=== PATIENT | female | born 1970 | race Caucasian/White ===

== ENCOUNTER → 2017-10-12 09:55 | Outpatient (CLI) | payer BC, SELFPAY ==
[2017-10-12 10:37] LABS: Alanine Aminotransferase 20 U/L (12-78); Albumin Level 3.5 gm/dL (3.4-5.0); Albumin/Globulin Ratio 1.1 (1.1-1.8); Alkaline Phosphatase 59 U/L (46-116); Anion Gap 10.1 mEq/L (5-15); Aspartate Amino Transferase 14 U/L (15-37); Bilirubin,Total 0.4 mg/dL (0.2-1.0); Blood Urea Nitrogen 14 mg/dL (7-18); Carbon Dioxide 27 mmol/L (21.0-32.0); Chloride 105 mmol/L (98-107); Chol/HDL Ratio 3.1 (1-3.5); Cholesterol 181 mg/dL (140-200); Creatinine,Serum 0.75 mg/dL (0.55-1.02); Estimated Glomerular Filt Rate 83 ml/min (>60); GFR (African American) 101 ML/MIN (>60); Globulin 3.3 gm/dl (1.3-3.2); Glucose 95 mg/dL (74-106); HDL Cholesterol 59 mg/dL (29-89); LDL Cholesterol 110 mg/dL (0-130); Potassium 4.1 mmoL/L (3.5-5.1); Sodium 138 mmol/L (136-145); Thyroid Stimulating Hormone 1.28 uIU/ml (0.358-3.740); Total Protein,Serum 6.8 gm/dL (6.4-8.2); Triglycerides 59 mg/dL (30-200); VLDL Cholesterol 12 mg/dL (0-40)
[2017-10-15 15:37] LABS: Vitamin B12 867 pg/mL (232-1245)
== END ==
PROVIDERS: PCP Internal Medicine Adolescent Medicine; Visit Provider Internal Medicine Adolescent Medicine
DX: Z00.00 Encounter for general adult medical examination without abnormal findings (principal); E03.9 Hypothyroidism, unspecified; E53.8 Deficiency of other specified B group vitamins
CPT/HCPCS: 36415; 80053; 80061; 82607; 84443

== ENCOUNTER → 2018-09-15 10:14 | Outpatient (CLI) | payer BC, SELFPAY ==
[2018-09-15 11:34] LABS: Basophils # 0.1 K/mm3 (0-0.2); Basophils % 0.7 % (0.1-2.0); Eosinophils # 0.1 K/mm3 (0.0-0.4); Eosinophils % 1.9 % (0.1-12.0); Hematocrit 40.2 % (37.0-47.0); Hemoglobin 12.7 g/dL (12.2-16.2); Lymphocytes # 1.4 K/mm3 (0.7-4.5); Lymphocytes % 20.9 % (10-50); Mean Corpuscular HGB Conc 31.5 g/dL (31.8-35.4); Mean Corpuscular Hemoglobin 28.9 pg (27.0-31.2); Mean Corpuscular Volume 91.6 fl (81-99); Mean Platelet Volume 8.6 fl (7.4-10.4); Monocytes # 0.5 K/mm3 (0.1-1.0); Monocytes % 7.8 % (1.7-9.3); Neutrophils # 4.8 K/mm3 (1.8-7.8); Neutrophils % 68.8 % (37.0-80.0); Platelet Count 279 K/mm3 (142-424); Red Blood Count 4.39 M/mm3 (4.20-5.40); Red Cell Distribution Width 13.8 % (11.5-17.5); White Blood Count 6.9 K/mm3 (4.8-10.8)
[2018-09-15 11:37] LABS: Alanine Aminotransferase 16 U/L (12-78); Albumin Level 3.3 gm/dL (3.4-5.0); Albumin/Globulin Ratio 1.2 (1.1-1.8); Alkaline Phosphatase 60 U/L (46-116); Anion Gap 9.1 mEq/L (5-15); Aspartate Amino Transferase 6 U/L (15-37); Bilirubin,Total 0.3 mg/dL (0.2-1.0); Blood Urea Nitrogen 11 mg/dL (7-18); Calcium 8.9 mg/dL (8.5-10.1); Carbon Dioxide 30 mmol/L (21.0-32.0); Chloride 106 mmol/L (98-107); Chol/HDL Ratio 3.2 (1-3.5); Cholesterol 175 mg/dL (140-200); Creatinine,Serum 0.75 mg/dL (0.55-1.02); Estimated Glomerular Filt Rate 83 ml/min (>60); GFR (African American) 100 ML/MIN (>60); Globulin 2.7 gm/dl (1.3-3.2); Glucose 86 mg/dL (74-106); HDL Cholesterol 55 mg/dL (29-89); LDL Cholesterol 106 mg/dL (0-130); Potassium 4.1 mmoL/L (3.5-5.1); Sodium 141 mmol/L (136-145); Thyroid Stimulating Hormone 0.49 uIU/ml (0.358-3.740); Triglycerides 69 mg/dL (30-200); VLDL Cholesterol 14 mg/dL (0-40)
[2018-09-16 09:26] LABS: Vitamin B12 1419 pg/mL (232-1245)
== END ==
PROVIDERS: Visit Provider Nurse Practitioner Family
DX: Z00.00 Encounter for general adult medical examination without abnormal findings (principal); E03.9 Hypothyroidism, unspecified; Z86.39 Personal history of other endocrine, nutritional and metabolic disease
CPT/HCPCS: 36415; 80053; 80061; 82607; 84443; 85025

== ENCOUNTER → 2018-09-19 10:56 | Outpatient (CLI) | payer BC, SELFPAY ==
--- NOTE | 2018-09-19 11:05 | MM_ITS ---
MM Dig screening mamm BI w/CAD CAD Screening COMPARISON: Digital mammograms with CAD 10/22/2014 and additional views right breast 11/04/2014 INDICATION: There is no personal or family history of breast cancer TECHNIQUE: Standard CC and MLO images were obtained. R2 CAD reviewed. FINDINGS: Moderate diffuse fibroglandular densities are seen in both breast. There is a questionable developing asymmetric density outer quadrant left breast best seen on CC projection where it is highlighted by CAD. This likely is a summation shadow however recommend patient return for spot compression views in MLO and CC projection of the area marked on the film. Ultrasound may be necessary as well. There is a benign-appearing calcification left breast. IMPRESSION: Moderate diffuse breast density with possible developing asymmetric density left breast BI-RADS Category: 0 Need Additional Imaging Evaluation RECOMMENDED FOLLOW-UP: IMM - IMMEDIATE FOLLOW-UP RECOMMENDED (A letter has been sent to the patient regarding results of the study.)
== END ==
PROVIDERS: PCP Internal Medicine Adolescent Medicine; Visit Provider Internal Medicine Adolescent Medicine
DX: Z12.31 Encounter for screening mammogram for malignant neoplasm of breast (principal)
CPT/HCPCS: 77067

== ENCOUNTER → 2018-10-03 12:50 | Outpatient (CLI) | payer BC, SELFPAY ==
--- NOTE | 2018-10-03 13:01 | MM_ITS ---
MM Dig mamm DX unilat LT CAD, US breast LT complete INDICATION: Possible developing density in the left breast as seen on screening mammogram ORDERING PHYSICIAN: Fabiana Grimm PATIENT AGE: 309/19/2017, [birth year][age] years COMPARISON: None TECHNIQUE: Problem-solving views performed of the left breast along with left breast ultrasound FINDINGS: Average fibroglandular tissue. There is slight asymmetric density noted in the lateral aspect of the left breast. This is nonspecific. No malignant appearing mass or malignant appearing microcalcification is evident. Left breast ultrasound: At 11:00 there is a 6 x 4 mm cyst. At 12:00 there is a 5 mm cyst and a 6 mm cyst. IMPRESSION: No convincing evidence of malignancy. Asymmetric density lateral left breast may be due to either overlying cysts or asymmetric tissue. BI-RADS Category: 3 Probably Benign Finding Short Term Follow-up RECOMMENDED FOLLOW-UP: 6M - 6 MONTH FOLLOW-UP (A letter has been sent to the patient regarding results of the study.)
== END ==
PROVIDERS: PCP Internal Medicine Adolescent Medicine; Visit Provider Nurse Practitioner Family
DX: R92.8 Other abnormal and inconclusive findings on diagnostic imaging of breast (principal)
CPT/HCPCS: 76641; 77065

== ENCOUNTER → 2019-09-24 12:42 | Outpatient (CLI) | payer BC, SELFPAY ==
[2019-09-24 12:59] LABS: Basophils # 0.1 K/mm3 (0-0.2); Basophils % 0.9 % (0.1-2.0); Eosinophils # 0.2 K/mm3 (0.0-0.4); Hematocrit 39.5 % (37.0-47.0); Hemoglobin 13.5 g/dL (12.2-16.2); Lymphocytes # 1.6 K/mm3 (0.7-4.5); Lymphocytes % 26.1 % (10-50); Mean Corpuscular HGB Conc 34.1 g/dL (31.8-35.4); Mean Corpuscular Volume 85.2 fl (81-99); Mean Platelet Volume 8.9 fl (7.4-10.4); Monocytes # 0.4 K/mm3 (0.1-1.0); Neutrophils # 3.8 K/mm3 (1.8-7.8); Neutrophils % 63.2 % (37.0-80.0); Platelet Count 283 K/mm3 (142-424); Red Blood Count 4.64 M/mm3 (4.20-5.40); Red Cell Distribution Width 13.2 % (11.5-17.5); White Blood Count 5.9 K/mm3 (4.8-10.8)
[2019-09-24 16:12] LABS: Alanine Aminotransferase 12 U/L (12-78); Albumin/Globulin Ratio 1.7 (1.1-1.8); Alkaline Phosphatase 49 U/L (38-126); Anion Gap 10.1 mEq/L (5-15); Aspartate Amino Transferase 22 U/L (14-36); Bilirubin,Total 0.3 mg/dl (0.2-1.3); Blood Urea Nitrogen 13 mg/dl (7-17); Calcium 9.6 mg/dl (8.4-10.2); Carbon Dioxide 31 mmol/L (22.0-30.0); Chloride 104 mmol/L (98-107); Chol/HDL Ratio 3.9 (1-3.5); Cholesterol 182 mg/dl (140-200); Estimated Glomerular Filt Rate 77 ml/min (>60); GFR (African American) 93 ML/MIN (>60); Globulin 2.4 g/dL (1.3-3.2); Glucose 98 mg/dl (74-100); HDL Cholesterol 47 mg/dl (40-60); Potassium 4.1 mmoL/L (3.5-5.1); Sodium 141 mmol/L (136-145); Total Protein,Serum 6.4 g/dl (6.3-8.2); Triglycerides 92 mg/dl (30-150); VLDL Cholesterol 18 mg/dL (0-40)
[2019-09-24 16:23] LABS: Direct LDL Cholesterol 108.62 mg/dL (100-129)
[2019-09-24 16:44] LABS: Thyroid Stimulating Hormone 0.07 uIU/mL (0.465-4.68)
[2019-09-25 15:44] LABS: Vitamin B12 1868 pg/mL (232-1245)
== END ==
PROVIDERS: Visit Provider Nurse Practitioner Family
DX: Z00.00 Encounter for general adult medical examination without abnormal findings (principal); E03.9 Hypothyroidism, unspecified; Z86.39 Personal history of other endocrine, nutritional and metabolic disease
CPT/HCPCS: 36415; 80053; 80061; 82607; 84443; 85025

== ENCOUNTER → 2019-10-01 10:53 | Outpatient (CLI) | payer BC, SELFPAY ==
--- NOTE | 2019-10-01 11:01 | MM_ITS ---
PROCEDURE: MM DIG SCREENING MAMM BI W/CAD Digital Breast Tomosynthesis Included CLINICAL INDICATION: SCREENING There is no personal or family history of breast cancer. COMPARISON: [id number] DIG MAMM-DX UNI ADD VIEWS-RT from 11/04/2014 SCBI MM Dig screening mamm BI w/CAD from 09/19/2018 DXLT MM Dig mamm DX unilat LT CAD from 10/03/2018 TECHNIQUE: Standard CC and MLO images and 3D Tomosynthesis was obtained. R2 CAD reviewed. FINDINGS: Moderate diffuse fibroglandular densities are seen throughout both breast and the findings of bilateral and symmetrical. There is a benign-appearing calcification just deep to the nipple left breast. Casey images were reviewed. There is no new or suspicious lesion in either breast and no suspicious microcalcifications. IMPRESSION: Moderate breast density with no suspicious lesions seen BI-RAD Category: 2 Benign Finding(s) FOLLOW-UP: 1YR 1 Year Follow-up (A letter has been sent to the patient regarding results of the study.) Dictated by: Dr. Deandre Lieberman MD 10/02/2019 13:[address] Deandre Lieberman MD in [place] 10/02/2019 13:04
== END ==
PROVIDERS: PCP Internal Medicine Adolescent Medicine; Visit Provider Nurse Practitioner Family
DX: Z12.31 Encounter for screening mammogram for malignant neoplasm of breast (principal)
CPT/HCPCS: 77063; 77067

== ENCOUNTER → 2020-09-19 16:42 | Outpatient (CLI) | payer BC, SELFPAY | PROVIDERS: Visit Provider Nurse Practitioner Family | DX: R30.0 Dysuria (principal) | CPT/HCPCS: 87086; 87088; 87186 ==

== ENCOUNTER → 2020-09-30 09:24 | Outpatient (CLI) | payer BC, SELFPAY ==
[2020-09-30 10:26] LABS: Basophils # 0.1 K/mm3 (0-0.2); Basophils % 1.4 % (0.1-2.0); Eosinophils # 0.1 K/mm3 (0.0-0.4); Eosinophils % 1.8 % (0.1-12.0); Hematocrit 42.4 % (37.0-47.0); Hemoglobin 13.4 g/dL (12.2-16.2); Lymphocytes # 1.5 K/mm3 (0.7-4.5); Lymphocytes % 25.8 % (10-50); Mean Corpuscular HGB Conc 31.5 g/dL (31.8-35.4); Mean Corpuscular Hemoglobin 28.3 pg (27.0-31.2); Mean Corpuscular Volume 89.8 fl (81-99); Mean Platelet Volume 8.5 fl (7.4-10.4); Monocytes # 0.4 K/mm3 (0.1-1.0); Monocytes % 7.5 % (1.7-9.3); Neutrophils # 3.7 K/mm3 (1.8-7.8); Neutrophils % 63.4 % (37.0-80.0); Platelet Count 301 K/mm3 (142-424); Red Blood Count 4.72 M/mm3 (4.20-5.40); Red Cell Distribution Width 13.6 % (11.5-17.5); White Blood Count 5.8 K/mm3 (4.8-10.8)
[2020-09-30 11:02] LABS: Anion Gap 10.7 mEq/L (5-15); Blood Urea Nitrogen 18 mg/dl (7-17); Carbon Dioxide 28 mmol/L (22.0-30.0); Chloride 106 mmol/L (98-107); Estimated Glomerular Filt Rate 76 ml/min (>60); Potassium 4.7 mmoL/L (3.5-5.1); Sodium 140 mmol/L (136-145)
[2020-09-30 11:03] LABS: Alanine Aminotransferase 16 U/L (12-78); Albumin Level 4.2 g/dl (3.5-5.0); Albumin/Globulin Ratio 1.8 (1.1-1.8); Alkaline Phosphatase 69 U/L (38-126); Aspartate Amino Transferase 24 U/L (14-36); Bilirubin,Total 0.3 mg/dl (0.2-1.3); Calcium 9.5 mg/dl (8.4-10.2); Chol/HDL Ratio 3.1 (1-3.5); Cholesterol 210 mg/dl (140-200); GFR (African American) 92 ML/MIN (>60); Globulin 2.4 g/dL (1.3-3.2); Glucose 93 mg/dl (74-100); HDL Cholesterol 67 mg/dl (40-60); Total Protein,Serum 6.6 g/dl (6.3-8.2); Triglycerides 57 mg/dl (30-150); VLDL Cholesterol 11 mg/dL (0-40)
[2020-09-30 11:15] LABS: Direct LDL Cholesterol 111.78 mg/dL (100-129)
[2020-09-30 11:33] LABS: Thyroid Stimulating Hormone 0.22 uIU/mL (0.465-4.68)
[2020-09-30 11:54] LABS: Vitamin B12 > 1000 pg/mL (239-931)
[2020-10-01 13:43] LABS: LH 66.6 mIU/mL (.)
[2020-10-05 12:36] LABS: Estrogen 54 pg/mL (.)
== END ==
PROVIDERS: Visit Provider Internal Medicine Adolescent Medicine
DX: Z01.419 Encounter for gynecological examination (general) (routine) without abnormal findings (principal); E03.9 Hypothyroidism, unspecified; Z86.39 Personal history of other endocrine, nutritional and metabolic disease
CPT/HCPCS: 36415; 80053; 80061; 82607; 82672; 83001; 83002; 84443; 85025

== ENCOUNTER 2021-07-22 18:19 | Emergency (ER) | payer BC, SELFPAY ==
[2021-07-22 19:40] VITALS: BP 143/91; PULSE 76; RESP 18; TEMP 36.8; O2SAT 99; BMI 27.6
--- NOTE | 2021-07-22 20:14 | HMH.EDUTC ---
[facility] [place] Clinical Impression: URI (upper respiratory infection) Qualifiers: URI type: unspecified URI Qualified Code(s): J06.9 - Acute upper respiratory infection, unspecified Disposition: Home, Self-Care Condition on Discharge: Good Instructions: DI for Cough -- Adult, DI for Nasal Congestion Additional Instructions: *Monitor Temp, Over the counter Motrin or Tylenol as directed/as needed Tylenol every 4 hours and Motrin every 6 hours (as long as your family doctor has told you that you can take it) for fever or pain. and straight to ER if unable to lower temp less than 101.0 after medication given *Warm salt water gargles may help to soothe the throat *Throat Lozenges *Warm fluids like tea with honey may help to soothe the throat *Sleep elevated *Humidifier/Vaporizer Over the counter Sudafed may help with sinus congestion if you can take it you can get it from the local pharmacy you have to ask for it and sign Follow up IMMEDIATELY for new or worsening symptoms or no Noticeable improvement over the next 48-72 hours. 911 for difficulty breathing or swallowing Referrals: Emmett Ventura MD [Primary Care Provider] - As needed Time of Disposition: 20:24 Medical Decision Making - Girish Inquiry Pt receiving controlled substance: No Girish was queried for this patient: No Vital Signs: 07/22/21 19:40 07/22/21 20:45 Temperature 98.2 F 98.2 F Temperature Source Oral Pulse Rate 76 Pulse Rate [Right Brachial] 76 Respiratory Rate 18 18 Blood Pressure 143/91 H Blood Pressure [Right Arm] 143/91 H Blood Pressure Mean [Right Arm] 108 Blood Pressure Source [Right Arm] Automatic Cuff Blood Pressure Position [Right Arm] Sitting 02 Sat by Pulse Oximetry 99 Oxygen Delivery Method Room Air Orders (Tests/Meds): ED MEDICATIONS Discontinued Medications Generic Name Dose Route Start Last Admin Trade Name Freq PRN Reason Stop Dose Admin Ceftriaxone Sodium 1 gm 07/22/21 20:21 07/22/21 20:42 Ceftriaxone 1gm Vial IM 07/22/21 20:22 1 gm ONCE ONE Administration Lidocaine HCl 0 ml 07/22/21 20:21 07/22/21 20:42 Lidocaine 1% 5ml Pf Vial IM 07/22/21 20:22 2 ml ONCE ONE Administration Methylprednisolone Sodium Succinate 125 mg 07/22/21 20:21 07/22/21 20:43 Methylprednisolone Sod Succ 125mg Vial IM 07/22/21 20:22 125 mg ONCE ONE Administration [facility] [place] [facility] [place] - General Stated complaint: possible sinus infection Time Seen by Provider: 07/22/21 20:14 Mode of Arrival: Ambulatory Source of Information: Patient Limitations: No Limitations Description of Symptoms (Recalled from Triage Doc. by RN): PATIENT C/O RUNNY NOSE, SINUS PAIN AND PRESSURE, AND BILATERAL EAR ACHE SINCE SATURDAY HEENT Symptoms (Recalled from RN notes): Yes Resp Symptoms (Recalled from RN notes): No Skin Symptoms (Recalled from RN notes): No MS Symptoms (Recalled from RN notes): No Functional Status (Recalled from RN notes): WNL - History of Present Illness Provider Complaint: Patient state that she has been having sinus congestion, runny nose and bilateral ear pain/pressure States that she gets a URI about this time every year and sometimes gets a shot for it to help clear it up before it gets too bad - Related Data Home Medications Medication Instructions Recorded Confirmed Levothyroxine Sodium [Synthroid 112 mcg PO DAILY 07/22/21 07/22/21 112mcg (0.112mg) tablet] Allergies Allergy/AdvReac Type Severity Reaction Status Date / Time No Known Allergies Allergy Unverified 01/21/19 15:18 - Worker's Comp Is this a Worker's Comp case?: No [facility] History - Hepatitis A Screen Drug use history?: No High risk sexual behaviors?: No History of sexually transmitted infection?: No Currently employed?: No Childcare worker?: No Do you have indoor plumbing?: Yes Do you have electricity?: Yes Attestation statement:: This patient has been screened for Hepatitis A risk factors. I have review
[2021-07-22 20:45] VITALS: BP 143/91; PULSE 76; RESP 18; TEMP 36.8; O2SAT 99
== END 2021-07-22 20:52 | disposition home or self-care (01) ==
PROVIDERS: Emergency Provider Nurse Practitioner; PCP Internal Medicine Adolescent Medicine
DX: J06.9 Acute upper respiratory infection, unspecified (principal)
CPT/HCPCS: 96372; 99202; G0463; J0696

== ENCOUNTER → 2021-10-28 10:48 | Outpatient (CLI) | payer BC, SELFPAY ==
[2021-10-28 11:31] LABS: Basophils # 0.1 K/mm3 (0-0.2); Basophils % 2.1 % (0.1-2.0); Eosinophils # 0.1 K/mm3 (0.0-0.4); Eosinophils % 1.8 % (0.1-12.0); Hematocrit 41.7 % (37.0-47.0); Hemoglobin 13.4 g/dL (12.2-16.2); Lymphocytes # 1.7 K/mm3 (0.7-4.5); Mean Corpuscular HGB Conc 32.2 g/dL (31.8-35.4); Mean Corpuscular Hemoglobin 29.2 pg (27.0-31.2); Mean Corpuscular Volume 90.6 fl (81-99); Mean Platelet Volume 8.8 fl (7.4-10.4); Monocytes # 0.5 K/mm3 (0.1-1.0); Neutrophils # 4.3 K/mm3 (1.8-7.8); Platelet Count 286 K/mm3 (142-424); Red Cell Distribution Width 13.7 % (11.5-17.5); White Blood Count 6.8 K/mm3 (4.8-10.8)
[2021-10-28 12:12] LABS: Alanine Aminotransferase 17 U/L (12-78); Albumin Level 4.1 g/dl (3.5-5.0); Albumin/Globulin Ratio 1.8 (1.1-1.8); Alkaline Phosphatase 67 U/L (38-126); Anion Gap 7.5 mEq/L (5-15); Aspartate Amino Transferase 23 U/L (14-36); Bilirubin,Total 0.4 mg/dl (0.2-1.3); Blood Urea Nitrogen 23 mg/dl (7-17); Calcium 9.2 mg/dl (8.4-10.2); Carbon Dioxide 30 mmol/L (22.0-30.0); Chloride 107 mmol/L (98-107); Cholesterol 208 mg/dl (140-200); Estimated Glomerular Filt Rate 89 ml/min (>60); GFR (African American) 107 ML/MIN (>60); Globulin 2.3 g/dL (1.3-3.2); Glucose 88 mg/dl (74-100); HDL Cholesterol 52 mg/dl (40-60); Potassium 4.5 mmoL/L (3.5-5.1); Sodium 140 mmol/L (136-145); Total Protein,Serum 6.4 g/dl (6.3-8.2); Triglycerides 65 mg/dl (30-150); VLDL Cholesterol 13 mg/dL (0-40)
[2021-10-28 12:23] LABS: Direct LDL Cholesterol 108.18 mg/dL (100-129)
[2021-10-28 12:42] LABS: Thyroid Stimulating Hormone 0.05 uIU/mL (0.465-4.68)
[2021-10-28 13:01] LABS: Vitamin B12 866 pg/mL (239-931)
[2021-10-28 15:12] LABS: Hemoglobin A1C 5.5 % (4.0-6.0)
== END ==
PROVIDERS: PCP Nurse Practitioner Family; Referring Provider Nurse Practitioner Family; Visit Provider Nurse Practitioner Family
DX: Z00.00 Encounter for general adult medical examination without abnormal findings (principal); E03.9 Hypothyroidism, unspecified; E66.9 Obesity, unspecified; Z68.32 Body mass index [BMI] 32.0-32.9, adult; Z86.39 Personal history of other endocrine, nutritional and metabolic disease
CPT/HCPCS: 36415; 80053; 80061; 82607; 83036; 84443; 85025

== ENCOUNTER → 2022-03-23 07:51 | Outpatient (CLI) | payer BC, SELFPAY ==
--- NOTE | 2022-03-23 07:56 | MM_ITS ---
PROCEDURE INFORMATION: Exam: MG Bilateral Screening 3D Mammography Exam date and time: 03/23/2022 7:52 AM Age: 52 years old Clinical indication: Screening examination TECHNIQUE: Imaging protocol: Bilateral Screening tomosynthesis and 2D mammography including computer-aided detection (CAD) when performed. COMPARISON: 1. MG MM DIG SCREENING MAMM BI W/CAD 10/01/2019 11:02 AM 2. MG DXLT MM Dig mamm DX unilat LT CAD 10/03/2018 1:18 PM FINDINGS: MAMMOGRAPHY: Breast composition: There are scattered areas of fibroglandular density. Mass: None. Architectural distortion: None. Calcifications: No suspicious calcifications. Asymmetric density: None. Skin thickening: None. Axillary adenopathy: None. IMPRESSION: No mammographic evidence of malignancy. Annual screening is recommended unless otherwise clinically indicated. ASSESSMENT: BI-RADS Category 1: Negative
== END ==
PROVIDERS: PCP Internal Medicine Adolescent Medicine; Visit Provider Internal Medicine Adolescent Medicine
DX: Z12.31 Encounter for screening mammogram for malignant neoplasm of breast (principal)
CPT/HCPCS: 77063; 77067

== ENCOUNTER 2022-08-07 08:17 | Day surgery (SDC) | payer BC, SELFPAY ==
[2022-08-07] VITALS (7 sets, daily range): BP systolic 87–128; BP diastolic 52–75; PULSE 61–78; RESP 17–18; TEMP 36.1–36.4; O2SAT 95–100; BMI 31.7
--- NOTE | 2022-08-07 08:34 | HMH.SCOPE ---
Procedure: Date: 08/07/22 Patient Date of :: 1970 Procedure Performed:: Colonoscopy Indications:: Screening Performing Provider:: Georges Ann MD Referring Provider:: Dr. Ventura Sedation:: Monitored anesthesia care Procedure:: After informed consent was obtained the patient was taken to the endoscopy suite. Sedation ensued after the patient was transferred to the left lateral decubitus position. Pulse, blood pressure, and oxygen saturation were monitored throughout the procedure. Digital rectal exam revealed no significant abnormality. The colonoscope was placed in position. The entire colon was evaluated. The colonoscope was carefully removed and the patient was transferred to recovery in stable condition. Please see findings and specimens below for detail. Findings:: Moderate bowel preparation Significant spasticity/tortuosity Specimens:: none Recommendations:: Repeat colonoscopy in 2-3 years secondary to moderate bowel preparation and spasticity/tortuosity. Complications:: No immediate Estimated blood obtained (mL): 0
--- NOTE | 2022-08-07 08:48 | P.PN_ITS ---
[facility] Disclaimer: The information contained in this section may have been updated after the patient was seen, as this information can be updated by other users. Medical History Hypothyroid Surgical History History of hysterectomy History of total vaginal hysterectomy (TVH) Family History Other Family history of cancer Family history of hypertension Social History (Updated 08/07/22 @ 08:35 by Hollie Holguin RN) Smoking Status: Never smoker alcohol intake: current substance use type: denies use current occupational status: employed Travel in the last 8 weeks: None household members: family housing: house marital status: education level: college caffeine: Yes special tammy needs: No agree to transfusion: No do you feel safe at home: Yes victim of physical abuse: No victim of emotional abuse: No victim of sexual abuse: No would you like helpful sources: No [facility] Anesthesia Checklist Patient Identification Patient Identification: Arm Band and Family Structural Data Admitted From: Home Planned Operative Procedure/s: Colonoscopy screening Consent for Planned Operative Procedure(s) Verified: Yes Verified Documents: Surgical Consent and History and Physical NPO Status Verified Time NPO: 00:00 Additional verifications Patient : No Anesthesia Reactions: No Hx Blood Transfusions: No Blood Transfusion Reaction: No Cephalosporin Allergy: No Previous Colonoscopy: No Airway Assessment C-Spine Mobility Assessed: Yes TMJ Mobility Assessed: Yes Dentition: Poor Dentition Neurological Assessment Level of Consciousness: Awake, Alert, Appropriate and Follows Commands Hx Seizures: No Numbness or tingling in extremities: No Genitourinary Assessment Voided construction representative to O.R.: Yes Anesthesia Plan Anesthesia Risk discussed: Yes ASA Class: II Anesthesia Type: MAC Preoperative Comments Pre-Operative Comments: Hypothyroid.
== END 2022-08-07 10:00 | disposition home or self-care (01) ==
PROVIDERS: PCP Internal Medicine Adolescent Medicine; Visit Provider Surgery
PROC: 0DJD8ZZ Inspection of Lower Intestinal Tract, Via Natural or Artificial Opening Endoscopic (ICD-10-PCS; CPT 45378; principal; 2022-08-07 09:30)
DX: Z12.11 Encounter for screening for malignant neoplasm of colon (principal); Z79.899 Other long term (current) drug therapy
CPT/HCPCS: 45378

== ENCOUNTER 2022-09-18 10:10 | Emergency (ER) | payer BC, SELFPAY ==
[2022-09-18 10:10] VITALS: BP 139/67; PULSE 84; RESP 20; TEMP 36.7; O2SAT 98; BMI 31.1
--- NOTE | 2022-09-18 10:46 | EXP.UTC ---
Discharge Plan Disposition Patient Disposition: Home, Self-Care Condition: Good Prescriptions Prescriptions: New prednisone [prednisone] 20 mg tablet 20 mg PO BID 5 Days Qty: 10 0RF amoxicillin-pot clavulanate 875-125 mg Tablet 1 tab PO Q12H Qty: 14 0RF No Action levothyroxine [Synthroid] 100 mcg tablet 100 mcg PO DAILY Loratadine-D 10-240 mg tablet extended release 24 hr 1 tab PO DAILY Elite-OB 50 mg iron- 1.25 mg tablet 1 tab PO DAILY Referrals Follow up/Referrals: Emmett Ventura MD [Primary Care Provider] - See instructions Activity Restrictions/Add. Instructions Additional Instructions/Restrictions: *Monitor Temp, Over the counter Motrin or Tylenol as directed/as needed Tylenol every 4 hours and Motrin every 6 hours (as long as your family doctor has told you that you can take it) for fever or pain. and straight to ER if unable to lower temp less than 101.0 after medication given *Warm salt water gargles may help to soothe the throat *Throat Lozenges? *Warm fluids like tea with honey may help to soothe the throat? *Sleep elevated *Humidifier/Vaporizer Follow up IMMEDIATELY for new or worsening symptoms or no Noticeable improvement over the next 48-72 hours. 911 for difficulty breathing or swallowing Clinical Impressions Clinical Impression: Sinusitis Stand Alone Forms Stand Alone Forms: Work/School Release Instructions Patient Instructions: DI for Sinusitis, Sinusitis Discharge ED Provider: Jazmin Dangelo [facility] General Stated complaint: Headache congestion sore throat Mode of Arrival: Ambulatory Source of Information: Patient Limitations: No Limitations Time Seen by Provider: 09/18/22 10:46 Description of Symptoms (Recalled from Triage Doc. by RN): sinus congestion, NAVARRO, sore throat. HEENT Symptoms (Recalled from RN notes): Yes Resp Symptoms (Recalled from RN notes): No Skin Symptoms (Recalled from RN notes): No MS Symptoms (Recalled from RN notes): No Functional Status (Recalled from RN notes): n/a History of Present Illness Provider Complaint: Patient states that she started about a month ago and thought it was just allergies States that for the last little bit she said it was getting worse and now having pressure under her eyes and the drainage has got more thick State that feels like what she gets every year around this time Related Data Home Medications Medication Instructions Recorded Confirmed loratadine-pseudoephedrine ER 10 1 tab PO DAILY allergies 08/03/22 09/18/22 mg-240 mg tablet,extended [id number] (Loratadine-D) multivitamin-minerals 1 tab PO DAILY Supplement 08/03/22 09/18/22 no.69-iron,carb 50 mg-folic acid 1.25 mg tablet (Elite-OB) levothyroxine 100 mcg tablet 100 mcg PO DAILY thyroid 09/03/22 09/18/22 (Synthroid) Previous Rx's Medication Instructions Recorded amoxicillin 875 mg-potassium 1 tab PO Q12H #14 tabs 09/18/22 clavulanate 125 mg tablet prednisone 20 mg tablet 20 mg PO BID 5 days #10 tabs 09/18/22 Allergies Allergy/AdvReac Type Severity Reaction Status Date / Time No Known Allergies Allergy Verified 09/18/22 10:42 Worker's Comp Is this a Worker's Comp case?: No PFSH PFS Disclaimer: The information contained in this section may have been updated after the patient was seen, as this information can be updated by other users. Medical History Hypothyroid Surgical History History of hysterectomy History of total vaginal hysterectomy (TVH) Family History Other Family history of cancer Family history of hypertension Social History Smoking Status: Never smoker alcohol intake: current substance use type: denies use current occupational status: employ
[2022-09-18 11:26] VITALS: BP 139/67; PULSE 84; RESP 20; TEMP 36.7; O2SAT 98
== END 2022-09-18 11:25 | disposition home or self-care (01) ==
PROVIDERS: Emergency Provider Nurse Practitioner; PCP Internal Medicine Adolescent Medicine
DX: J01.90 Acute sinusitis, unspecified (principal)
CPT/HCPCS: 96372; 99212; 99214; G0463

== ENCOUNTER 2024-03-08 08:56 | Outpatient (CLI) | payer BC, SELFPAY ==
[2024-03-08 09:20] LABS: Basophils # 0.1 K/mm3 (0-0.2); Basophils % 0.7 % (0.1-2.0); Eosinophils # 0.4 K/mm3 (0.0-0.4); Eosinophils % 4.3 % (0.1-12.0); Hematocrit 41.4 % (37.0-47.0); Hemoglobin 13.4 g/dL (12.2-16.2); Lymphocytes # 1.9 K/mm3 (0.7-4.5); Lymphocytes % 20.9 % (10-50); Mean Corpuscular HGB Conc 32.4 g/dL (31.8-35.4); Mean Corpuscular Hemoglobin 29.1 pg (27.0-31.2); Mean Corpuscular Volume 89.8 fl (81-99); Monocytes # 0.6 K/mm3 (0.1-1.0); Monocytes % 6.5 % (1.7-9.3); Neutrophils # 6.2 K/mm3 (1.8-7.8); Neutrophils % 67.7 % (37.0-80.0); Platelet Count 291 K/mm3 (142-424); Red Blood Count 4.61 M/mm3 (4.20-5.40); Red Cell Distribution Width 14.5 % (11.5-17.5); White Blood Count 9.1 K/mm3 (4.8-10.8)
[2024-03-08 10:01] LABS: Alanine Aminotransferase 17 U/L (12-78); Albumin Level 3.5 g/dl (3.5-5.0); Albumin/Globulin Ratio 1.4 (1.1-1.8); Alkaline Phosphatase 71 U/L (38-126); Amylase 51 U/L (30-110); Anion Gap 8.1 mEq/L (5-15); Aspartate Amino Transferase 26 U/L (14-36); Bilirubin,Total 0.3 mg/dl (0.2-1.3); Blood Urea Nitrogen 14 mg/dl (7-17); Calcium 9.2 mg/dl (8.4-10.2); Carbon Dioxide 28 mmol/L (22.0-30.0); Chloride 107 mmol/L (98-107); Estimated Glomerular Filt Rate 88 ml/min (>60); GFR (African American) 106 ML/MIN (>60); Globulin 2.5 g/dL (1.3-3.2); Glucose 103 mg/dl (74-100); Lipase 139 U/L (23-300); Magnesium 1.9 mg/dl (1.6-2.3); Potassium 4.1 mmoL/L (3.5-5.1); Sodium 139 mmol/L (136-145)
[2024-03-08 10:16] LABS: Free Thyroxine Index 3.2 ug/dL (5.93-13.13); T4 (Thyroxine) 10.7 ug/dl (5.53-11.0); Triiodothryronine (T3) Uptake 30 % (23.5-40.5)
[2024-03-08 10:30] LABS: Thyroid Stimulating Hormone 6.55 uIU/mL (0.465-4.68)
== END 2024-03-08 23:59 | disposition home or self-care (01) ==
LOC: LAB 08:57
PROVIDERS: PCP Internal Medicine Adolescent Medicine; Visit Provider Internal Medicine Adolescent Medicine
DX: R10.84 Generalized abdominal pain (principal); R11.10 Vomiting, unspecified
CPT/HCPCS: 36415; 80050; 80053; 82150; 83690; 83735; 84436; 84443; 84479; 85025

== ENCOUNTER 2024-03-12 10:47 | Outpatient (CLI) | payer BC, SELFPAY ==
--- NOTE | 2024-03-12 10:50 | US_ITS ---
FINAL REPORT CLINICAL HISTORY: Abdominal pain and recurrent vomiting FINDINGS: Sonographic images of the abdomen were obtained. The liver has an unremarkable appearance with normal echogenicity. The gallbladder has an unremarkable appearance without evidence of gallstones. There is no evidence of biliary ductal dilatation. The common hepatic duct measures 3 mm, which is within normal limits. Limited images of the pancreas are obscured. The spleen size is normal. The right kidney measures 8.6 cm in length. The left kidney measures 10 cm in length. There is normal renal echogenicity. There is no evidence of hydronephrosis. The aorta has an unremarkable appearance. Limited images of the inferior vena cava are unremarkable. IMPRESSION: Unremarkable abdominal ultrasound with no acute abnormality identified. Reviewed, Interpreted and Dictated by Oliver Kunz MD Transcribed by Chayito Silverman Authenticated and . [facility]
== END 2024-03-12 23:59 | disposition home or self-care (01) ==
LOC: RAD 10:47
PROVIDERS: PCP Internal Medicine Adolescent Medicine; Visit Provider Internal Medicine Adolescent Medicine
DX: R10.84 Generalized abdominal pain (principal); R11.10 Vomiting, unspecified
CPT/HCPCS: 76700

== ENCOUNTER 2024-03-18 07:26 | Emergency (ER) | payer BC, SELFPAY ==
[2024-03-18] VITALS (7 sets, daily range): BP systolic 119–126; BP diastolic 80–89; PULSE 81–103; RESP 18; TEMP 36.4–36.7; O2SAT 98–100; BMI 24.0
--- NOTE | 2024-03-18 07:40 | PC.NURSE ---
Dr. Sofia at BS from pt eval
--- NOTE | 2024-03-18 07:42 | CT_ITS ---
FINAL REPORT TECHNIQUE: Postcontrast axial images through the abdomen and pelvis were performed. This study was performed with techniques to keep radiation doses as low as reasonably achievable, (ALARA). Individualized dose reduction techniques using automated exposure control or adjustment of mA and/or kV according to the patient's size were employed. CLINICAL HISTORY: abdominal pain FINDINGS: Abdomen: The lung bases are clear. The liver is normal in size and attenuation. The spleen is unremarkable. The adrenals are normal. The pancreas is unremarkable. The kidneys enhance appropriately. The aorta is normal in caliber. No free fluid or adenopathy is identified. No findings for mechanical bowel obstruction are identified. Pelvis: The appendix is normal. There are multiple fluid-filled large and small bowel loops, may represent enteritis. Patient is status post hysterectomy. The urinary bladder is unremarkable. No free fluid, free air, abscess or adenopathy is identified. IMPRESSION: Findings may represent enteritis. Reviewed, Interpreted and Dictated by Shadi Hdez III, MD Transcribed by Tiffanie Souza Authenticated and [facility]
--- NOTE | 2024-03-18 07:44 | HMH.EDGENADL ---
Discharge Plan Disposition Patient Disposition: Home, Self-Care Condition: Good Prescriptions Prescriptions: New ondansetron 4 mg tablet,disintegrating 4 mg PO Q6H PRN (Reason: nausea and vomiting) 4 Days Qty: 16 0RF No Action levothyroxine [Synthroid] 100 mcg tablet 100 mcg PO DAILY phentermine [Adipex-P] 37.5 mg capsule 37.5 mg PO DAILY Qty: 30 0RF Rx Instructions: must administer 30 minutes before or 1-2 hours after breakfast estradiol 0.05 mg/24 hr patch semiweekly See Rx Instructions .ROUTE .COMPLEX Qty: 8 12RF Dose Instruction: APPLY 1 PATCH TRANSDERMALLY TWICE A WEEK Rx Instructions: APPLY 1 PATCH TRANSDERMALLY TWICE A WEEK ondansetron 4 mg tablet,disintegrating 4 mg PO QID PRN (Reason: nausea and vomiting) Qty: 10 0RF Loratadine-D 10-240 mg tablet extended release 24 hr 1 tab PO DAILY Elite-OB 50 mg iron- 1.25 mg tablet 1 tab PO DAILY Referrals Follow up/Referrals: Emmett Ventura MD [Primary Care Provider] - See instructions Activity Restrictions/Add. Instructions Additional Instructions/Restrictions: You have been evaluated in the ED for your complaints. You may follow-up with your PCP in the next 3 to 5 days. Please return to ED for any new or worsening symptoms. I have written for Zofran to assist with nausea and vomiting. Please make sure that you are drinking plenty of fluids over the next several days in the setting of your symptoms. Clinical Impressions Clinical Impression: Enteritis, Abdominal pain, Nausea vomiting and diarrhea Stand Alone Forms Stand Alone Forms: Work/School Release Instructions Patient Instructions: DI for Acute Abdominal Pain Print Language Print Language: Nepalese Discharge ED Provider: Andrey Sofia General Adult HPI General Chief complaint: Abdominal Pain Stated complaint: stomach pain pancreatitis issues Time Seen by Provider: 03/18/24 07:37 History of Present Illness HPI narrative: 54-year-old female with past medical history significant for hypothyroidism, recent diagnosis of drug-induced pancreatitis secondary to GLP 1 drug on 03/16/2024, returns to the ED today reporting same symptoms as her most recent visit. She states that she has had multiple episodes of nausea, vomiting and diarrhea this morning. She denies having any chest pain, shortness of breath, fevers or chills. She states that her abdominal pain is diffuse however more focal in the upper quadrants. She denies any other symptoms at this time. Related Data Home Medications ?Medication ?Instructions ?Recorded ?Confirmed loratadine-pseudoephedrine ER 10 1 tab PO DAILY allergies 08/03/22 11/13/22 mg-240 mg tablet,extended [id number] (Loratadine-D) multivitamin-minerals 1 tab PO DAILY Supplement 08/03/22 11/13/22 no.69-iron,carb 50 mg-folic acid 1.25 mg tablet (Elite-OB) levothyroxine 100 mcg tablet 100 mcg PO DAILY thyroid 09/03/22 11/13/22 (Synthroid) Previous Rx's ?Medication ?Instructions ?Recorded phentermine 37.5 mg capsule 37.5 mg PO DAILY #30 caps 11/13/22 (Adipex-P) estradiol 0.05 mg/24 hr semiweekly See Rx Instructions .Route 10/29/23 transdermal patch .COMPLEX #8 patches ondansetron 4 mg disintegrating 4 mg PO QID PRN nausea and 03/16/24 tablet vomiting #10 tabs ondansetron 4 mg disintegrating 4 mg PO Q6H PRN nausea and 03/18/24 tablet vomiting 4 days #16 tabs Allergies Allergy/AdvReac Type Severity Reaction Status Date / Time No Known Allergies Allergy Verified 11/13/22 13:44 [facility] Disclaimer: The information contained in this section may have been updated after the patient was seen, as this information can be updated by other users. Medical History Hypothyroid Surgical History History of hysterectomy History of total vaginal hysterectomy (TVH) Family History Other Family history of cancer Family history of hypertension Social History Smoking Status: Never smoker alcohol intake: current substance use type: denies use current occupational status: employed Travel in the last 8 weeks: None household members: family housing: house marital status: education level: college caffeine: Yes special tammy needs: No agree to transfusion: No do you feel safe at home: Yes victim of physical abuse: No victim of emotional abuse: No victim of sexual abuse: No would you like helpful sources: No ROS Obtained: Yes All systems reviewed & no additional complaints except as documented Physical Exam General General appearance: alert and in no apparent distress Head Head exam: atraumatic and normocephalic Eye Eye exam: Present normal appearance, PERRL and EOMI ENT ENT exam: Present normal oropharynx and mucous membranes moist Neck Neck exam: Present full ROM; Absent meningismus Respiratory Respiratory exam: Absent respiratory distress, wheezes, stridor or accessory muscle use Cardiovascular Cardiovascular exam: Present normal rhythm Abdominal Exam Abdominal exam: Present soft and tenderness; Absent distention, guarding, rebound or rigidity Abdominal tenderness: Present RUQ, LUQ, epigastrium and diffuse Neurological Exam Neurological exam: Present alert, oriented X3 and CN II-XII intact; Absent motor sensory deficit Psychiatric Psychiatric exam: Present normal affect and normal mood Skin Skin exam: Present warm and dry Medical Decision Making Medical Records Medical records reviewed: Yes I reviewed the patient's medical records. Girish Inquiry Pt receiving controlled substance: No Girish was queried for this patient: No Vital Signs: 03/18/24 07:28 03/18/24 07:31 03/18/24 08:00 Temperature 97.6 F Temperature Source Oral Pulse Rate 103 H 85 Pulse Rate [Left Radial] 91 H Respiratory Rate 18 Blood Pressure 126/82 124/89 Blood Pressure [Right Arm] 126/82 Blood Pressure Mean [Right Arm] 96 Blood Pressure Source [Right Arm] Automatic Cuff Blood Pressure Position [Right Arm] Sitting 02 Sat by Pulse Oximetry 100 99 98 Oxygen Delivery Method Room Air 03/18/24 08:30 03/18/24 09:30 03/18/24 10:00 Temperature Temperature Source Pulse Rate 85 85 81 Pulse Rate [Left Radial] Respiratory Rate Blood Pressure 123/80 124/82 119/81 Blood Pressure [Right Arm] Blood Pressure Mean [Right Arm] Blood Pressure Source [Right Arm] Blood Pressure Position [Right Arm] 02 Sat by Pulse Oximetry 99 99 100 Oxygen Delivery Method Room Air Lab Data Lab Results 03/18/24 07:35: WBC 10.6, RBC 5.12, Hgb 14.7, Hct 46.6, MCV 91.0, MCH 28.7, MCHC 31.5 L, RDW 14.7, Plt Count 346, MPV 9.6, Neut % (Auto) 63.3, Lymph % (Auto) 18.9, Sutter % (Auto) 9.0, Eos % (Auto) 8.3, Baso % (Auto) 0.5, Neut # (Auto) 6.7, Lymph # (Auto) 2.0, Sutter # (Auto) 1.0, Eos # (Auto) 0.9 H, Baso # (Auto) 0.1, Sodium 135 L, Potassium 4.0, Chloride 105, Carbon Dioxide 26, Anion Gap 8.0, BUN 14, Creatinine 0.80, Estimated Creat Clear 74, Estimated GFR 75, Est GFR ( Amer) 91, Glucose 101 H, Calcium 8.8, Total Bilirubin 0.6, AST 22, ALT 14, Alkaline Phosphatase 54, Total Protein 6.4, Albumin 3.5, Globulin 2.9, Albumin/Globulin Ratio 1.2, Lipase 49 03/18/24 08:10: Lactate 1.0 03/18/24 07:35 03/18/24 07:35 Orders (Tests/Meds): ED MEDICATIONS Discontinued Medications Generic Name Dose Route Start Last Admin Trade Name Freq PRN Reason Stop Dose Admin Lactated Ringer's 500 mls @ 999 mls/hr 03/18/24 07:42 03/18/24 08:03 Lactated Ringer's 1000 Ml Bag IV 03/18/24 08:12 999 mls/hr .Q31M ONE Administration Iopamidol 75 ml 03/18/24 08:31 03/18/24 08:32 Iopamidol-370 (76%);100ml Bottle IV 03/18/24 08:32 75 ml ONCE ONE Administration Morphine Sulfate 4 mg 03/18/24 07:42 03/18/24 08:03 Morphine 4mg/Ml Syringe IV 03/18/24 07:43 4 mg ONCE ONE Administration Ondansetron HCl 4 mg 03/18/24 07:42 03/18/24 08:03 Ondansetron 4mg/2ml Vial IV 03/18/24 07:43 4 mg ONCE ONE Administration Sodium Chloride 10 ml 03/18/24 08:31 03/18/24 08:32 Sodium Chloride 0.9% 10ml Syr (Rad Only) IV 03/18/24 08:32 10 ml ONCE ONE Administration ORDERS Category Date Time Status CT abdomen pelvis w con Stat Cat Scan 03/18/24 07:42 Completed CBC w/Auto Diff [Complete Blood Count Auto Diff] Stat Lab 03/18/24 07:35 Completed CMP [Comprehensive Metabolic Panel] Stat Lab 03/18/24 07:35 Completed Lactic Acid Stat Lab 03/18/24 08:10 Completed Lipase Stat Lab 03/18/24 07:35 Completed Medical Decision Narrative: 54-year-old female with past medical history significant for hypothyroidism, recent diagnosis of drug-induced pancreatitis secondary to GLP 1 drug on 03/16/2024, returns to the ED today reporting same symptoms as her most recent visit. She states that she has had multiple episodes of nausea, vomiting and diarrhea this morning. She denies having any chest pain, shortness of breath, fevers or chills. She states that her abdominal pain is diffuse however more focal in the upper quadrants. On assessment she was hemodynamically stable and in no acute distress. Afebrile. Her chest was clear to station bilaterally. Her abdomen was soft and nondistended however was generally tender, more focal in the upper quadrants specifically the epigastrium. Other physical exam findings unremarkable. Differential diagnosis include not limited to worsening pancreatitis, gastritis, gastroenteritis, cholecystitis, appendicitis, among others. Labs today have been reassuring. No significant electrolyte derangements. WBC is not elevated at 10.6. Lipase within range at 49. Lactate of 1. CT scan is not showing pancreatitis today however it is showing findings consistent with enteritis. On reassessment she remains medically stable in no distress. She has been able to tolerate oral intake without difficulty. Pain is controlled. Discussed with patient ED work-up and results and current plan to discharge. Provided with return to ED precautions and instructions concerning PCP follow-up. Patient verbalized understanding and agreement with plan. Subsequently discharged hemodynamically stable and in no acute distress. Critical Care Critical Care Time Critical Care Time: No
[2024-03-18 07:49] LABS: Basophils # 0.1 K/mm3 (0-0.2); Basophils % 0.5 % (0.1-2.0); Eosinophils # 0.9 K/mm3 (0.0-0.4); Eosinophils % 8.3 % (0.1-12.0); Hematocrit 46.6 % (37.0-47.0); Hemoglobin 14.7 g/dL (12.2-16.2); Lymphocytes % 18.9 % (10-50); Mean Corpuscular HGB Conc 31.5 g/dL (31.8-35.4); Mean Corpuscular Hemoglobin 28.7 pg (27.0-31.2); Mean Platelet Volume 9.6 fl (7.4-10.4); Neutrophils # 6.7 K/mm3 (1.8-7.8); Neutrophils % 63.3 % (37.0-80.0); Platelet Count 346 K/mm3 (142-424); Red Blood Count 5.12 M/mm3 (4.20-5.40); Red Cell Distribution Width 14.7 % (11.5-17.5); White Blood Count 10.6 K/mm3 (4.8-10.8)
[2024-03-18 08:02] LABS: Alanine Aminotransferase 14 U/L (12-78); Albumin Level 3.5 g/dl (3.5-5.0); Albumin/Globulin Ratio 1.2 (1.1-1.8); Alkaline Phosphatase 54 U/L (38-126); Aspartate Amino Transferase 22 U/L (14-36); Bilirubin,Total 0.6 mg/dl (0.2-1.3); Blood Urea Nitrogen 14 mg/dl (7-17); Calcium 8.8 mg/dl (8.4-10.2); Carbon Dioxide 26 mmol/L (22.0-30.0); Chloride 105 mmol/L (98-107); Creatinine Clearance Estimated 74 mL/min (50-200); Estimated Glomerular Filt Rate 75 ml/min (>60); GFR (African American) 91 ML/MIN (>60); Globulin 2.9 g/dL (1.3-3.2); Glucose 101 mg/dl (74-100); Lipase 49 U/L (23-300); Sodium 135 mmol/L (136-145); Total Protein,Serum 6.4 g/dl (6.3-8.2)
[2024-03-18] MEDS: MORPHINE 4MG/ML SYRINGE 4 MG IV (08:03)
[2024-03-18] MEDS: LACTATED RINGERS 1000ML 500 ML 999 ML IV (08:03)
[2024-03-18] MEDS: ONDANSETRON 4MG/2ML VIAL 4 MG IV (08:03)
--- NOTE | 2024-03-18 08:23 | PC.NURSE ---
PT TO CT
--- NOTE | 2024-03-18 08:29 | PC.NURSE ---
PT RETURNED FROM CT
[2024-03-18] MEDS: IOPAMIDOL-370 (76%);100ML BOTTLE 75 ML IV (08:32)
[2024-03-18] MEDS: SODIUM CHLORIDE 0.9% 10ML SYR (RAD ONLY) 10 ML IV (08:32)
--- NOTE | 2024-03-18 08:53 | PC.NURSE ---
Dr. Sofia at bedside
--- NOTE | 2024-03-18 08:54 | PC.NURSE ---
DR MARQUEZ AT BEDSIDE
--- NOTE | 2024-03-18 09:50 | PC.NURSE ---
ROUNDED ON PT, UPDATED ON POC. REQUESTS GATORADE. PROVIDED
--- NOTE | 2024-03-18 10:10 | PC.NURSE ---
DR MARQUEZ AT BEDSIDE TO UPDATE PT AND FAMILY
== END 2024-03-18 10:28 | disposition home or self-care (01) ==
PROVIDERS: Emergency Provider Emergency Medicine; PCP Internal Medicine Adolescent Medicine
DX: K52.9 Noninfective gastroenteritis and colitis, unspecified (principal); R11.2 Nausea with vomiting, unspecified; R10.11 Right upper quadrant pain; R10.12 Left upper quadrant pain; E03.9 Hypothyroidism, unspecified
CPT/HCPCS: 74177; 80053; 83605; 83690; 85025; 96374; 96375; 99285; J2270; J2405; J7120; Q9967

== ENCOUNTER 2024-05-31 09:38 | Outpatient (CLI) | payer BC, SELFPAY ==
[2024-05-31 10:06] LABS: Basophils # 0.1 K/mm3 (0-0.2); Eosinophils # 0.4 K/mm3 (0.0-0.4); Eosinophils % 8.2 % (0.1-12.0); Lymphocytes # 1.1 K/mm3 (0.7-4.5); Lymphocytes % 22.6 % (10-50); Mean Corpuscular HGB Conc 34.2 g/dL (31.8-35.4); Mean Corpuscular Volume 87.9 fl (81-99); Mean Platelet Volume 8.6 fl (7.4-10.4); Monocytes # 0.5 K/mm3 (0.1-1.0); Monocytes % 10.4 % (1.7-9.3); Neutrophils # 2.8 K/mm3 (1.8-7.8); Neutrophils % 57.8 % (37.0-80.0); Platelet Count 232 K/mm3 (142-424); Red Blood Count 4.32 M/mm3 (4.20-5.40); White Blood Count 4.9 K/mm3 (4.8-10.8)
[2024-05-31 10:34] LABS: Albumin Level 3.6 g/dl (3.5-5.0); Chloride 106 mmol/L (98-107)
[2024-05-31 10:35] LABS: Potassium 4.4 mmoL/L (3.5-5.1); Sodium 137 mmol/L (136-145)
[2024-05-31 10:37] LABS: Alanine Aminotransferase 18 U/L (12-78); Aspartate Amino Transferase 23 U/L (14-36); Blood Urea Nitrogen 17 mg/dl (7-17); Estimated Glomerular Filt Rate 75 ml/min (>60); GFR (African American) 91 ML/MIN (>60)
[2024-05-31 10:38] LABS: Albumin/Globulin Ratio 1.6 (1.1-1.8); Alkaline Phosphatase 64 U/L (38-126); Anion Gap 7.4 mEq/L (5-15); Bilirubin,Total 0.3 mg/dl (0.2-1.3); Carbon Dioxide 28 mmol/L (22.0-30.0); Chol/HDL Ratio 3.2 (1-3.5); Cholesterol 173 mg/dl (140-200); Globulin 2.2 g/dL (1.3-3.2); Glucose 113 mg/dl (74-100); HDL Cholesterol 54 mg/dl (40-60); Total Protein,Serum 5.8 g/dl (6.3-8.2); Triglycerides 83 mg/dl (30-150); VLDL Cholesterol 17 mg/dL (0-40)
[2024-05-31 10:49] LABS: Direct LDL Cholesterol 82.99 mg/dL (100-129)
[2024-05-31 11:06] LABS: Thyroid Stimulating Hormone 0.08 uIU/mL (0.465-4.68)
[2024-05-31 12:05] LABS: Vitamin B12 > 1000 pg/mL (239-931)
[2024-06-01 14:01] LABS: Hemoglobin A1C 5.1 % (4.0-6.0)
== END 2024-05-31 23:59 | disposition home or self-care (01) ==
LOC: LAB 09:39
PROVIDERS: Internal Medicine Adolescent Medicine; PCP Nurse Practitioner Family; Visit Provider Nurse Practitioner Family
DX: E53.8 Deficiency of other specified B group vitamins (principal); E03.9 Hypothyroidism, unspecified; Z00.00 Encounter for general adult medical examination without abnormal findings
CPT/HCPCS: 36415; 80050; 80053; 80061; 82607; 83036; 84443; 85025

== ENCOUNTER 2024-07-06 13:08 | Outpatient (CLI) | payer BC, SELFPAY ==
--- NOTE | 2024-07-06 13:12 | MM_ITS ---
PROCEDURE INFORMATION: Exam: MG Bilateral Screening 3D Mammography Exam date and time: 07/06/2024 1:12 PM Age: 54 years old Clinical indication: Screening examination TECHNIQUE: Imaging protocol: Bilateral Screening tomosynthesis and 2D mammography including computer-aided detection (CAD) when performed. COMPARISON: 1. MG MM DIG SCREENING MAMM BI W/CAD 03/23/2022 7:52 AM 2. MG MM DIG SCREENING MAMM BI W/CAD 10/01/2019 11:02 AM FINDINGS: MAMMOGRAPHY: Breast composition: The breasts are heterogeneously dense, which may obscure small masses. Mass: No suspicious masses. Architectural distortion: None. Calcifications: No suspicious calcifications. Asymmetric density: None. Skin thickening: None. Axillary adenopathy: None. IMPRESSION: No mammographic evidence of malignancy. Annual screening is recommended unless otherwise clinically indicated. ASSESSMENT: BI-RADS Category 1: Negative.
== END 2024-07-06 23:59 | disposition home or self-care (01) ==
LOC: RAD 13:08
PROVIDERS: PCP Nurse Practitioner Family; Visit Provider Nurse Practitioner Family
DX: Z12.31 Encounter for screening mammogram for malignant neoplasm of breast (principal)
CPT/HCPCS: 77063; 77067

== ENCOUNTER 2024-12-21 10:26 | Day surgery (SDC) | payer BC, SELFPAY ==
[2024-12-21 11:35] VITALS: BP 104/77; PULSE 75; RESP 16; TEMP 36.2; O2SAT 100; BMI 27.6
[2024-12-21] MEDS: LACTATED RINGERS 1000ML 1,000 ML 50 ML IV (11:41)
--- NOTE | 2024-12-21 12:22 | EXP.HP ---
History of Present Illness *Admission Date: 12/21/24 *Reason for visit:: Screening for colon cancer *History of present illness: Mrs. Hernandez is a 54-year-old female who is here for screening colonoscopy. The examination is deemed medically necessary for screening colonoscopy. The patient has been seen, interviewed and examined prior to the procedure by both myself and the anesthesia provider. [facility] Disclaimer: The information contained in this section may have been updated after the patient was seen, as this information can be updated by other users. Medical History (Updated 12/21/24 @ 12:23 by Desmond Leos II, MD) Pancreatitis Conjunctivitis Hypothyroid Surgical History History of hysterectomy History of total vaginal hysterectomy (TVH) Family History Other Family history of cancer Family history of hypertension Social History Smoking Status: Never smoker alcohol intake: current substance use type: denies use current occupational status: employed Travel in the last 8 weeks?: None household members: family housing: house marital status: education level: college caffeine: Yes special tammy needs: No agree to transfusion: No do you feel safe at home: Yes victim of physical abuse: No victim of emotional abuse: No victim of sexual abuse: No would you like helpful sources: No Have you lived/traveled outside [place] in past 30 days?: No Contact w/someone who lives/traveled outside US past 30 days?: No Exposure to someone with infectious disease in past 14 days?: No Do you have a fever (greater than 100.4 F or 38 C)?: No Have you tested positive for COVID-19?: No Exposed to someone with COVID-19 in past 14 days?: No Do you have a sore throat?: No Do you have a cough?: No Do you have any weakness?: No Do you have any diarrhea?: No Are you experiencing any unusual bleeding?: No Do you have any muscle aches/pain?: No Do you have any abdominal pain?: No Are you experiencing loss of taste or smell?: No Other Medical History Have you received the Pneumonia Vaccine: No Review of Systems Review of Systems Review of systems (narrative): Negative *Cardiovascular Comments: Negative *Gastrointestinal Comments: Negative *Genitourinary Comments: Negative *Musculoskeletal Comments: Negative *Neurologic Comments: Negative Meds Home Medications and Allergies Home Medications ?Medication ?Instructions ?Recorded ?Confirmed ?Type loratadine-pseudoephedrine ER 10 1 tab PO DAILY allergies 08/03/22 12/21/24 History mg-240 mg tablet,extended [id number] (Loratadine-D) multivitamin-minerals 1 tab PO DAILY Supplement 08/03/22 12/21/24 History no.69-iron,carb 50 mg-folic acid 1.25 mg tablet (Elite-OB) PNV w/calcium 66-iron 27 mg-folic 300 cap PO DAILY 07/06/24 12/21/24 History 1.25 mg-DSS 55 mg-dha 300 mg capsule bupropion HCl 150 mg 24 hr tablet, 150 mg PO DAILY 07/06/24 12/21/24 History extended release fluticasone propionate 50 50 mcg intranasal DAILY 07/06/24 12/21/24 History mcg/actuation nasal spray,suspension levothyroxine 112 mcg tablet 112 mcg PO DAILY 07/06/24 12/21/24 History estradiol 0.05 mg/24 hr semiweekly See Rx Instructions .Route 07/28/24 12/21/24 Rx transdermal patch .COMPLEX #24 patches New Prescriptions to Start Prescriptions: Allergies Allergy/AdvReac Type Severity Reaction Status Date / Time No Known Allergies Allergy Verified 12/01/24 15:01 Exam Data for Last 24 hours Vital signs and Labs for Last 24 Hours: Temp Pulse Resp BP Pulse Ox O2 Del Method 97.2 F L 75 16 104/77 L 100 Room Air 12/21/24 11:35 12/21/24 11:35 12/21/24 11:35 12/21/24 11:35 12/21/24 11:35 12/21/24 11:35 I & O for Last 24 hours: Intake & Output 12/18/24 12/19/24 12/20/24 12/21/24 23:59 23:59 23:59 23:59 Weight 146 lb *Routine HEENT Exam Head: Present normocephalic Eye: Present EOMI and PERRL ENT: Present mucous membranes moist *Routine Neck Exam Neck: Present supple *Routine Respiratory Exam Respiratory: Present CTA bilaterally *Routine Cardiovascular Exam Cardiovascular: Present RRR *Routine Abdominal Exam Abdominal: Present soft and normoactive bowel sounds; Absent tenderness *Routine Rectal Exam Rectal:: deferred *Routine Genitalia Exam Genitalia:: deferred *Routine Extremities Exam Extremities: Absent cyanosis, clubbing or edema *Routine Skin Exam Skin: Present warm; Absent rash *Routine Neurological Exam Neurological: Present alert and oriented X3 Assessment and Plan *Assessment and plan (1) Screening for colon cancer: Status: Acute Category: Medical Code(s): Z12.11 - Encounter for screening for malignant neoplasm of colon Plan A/P: 1. Screening for colon cancer is the preprocedural diagnosis. The patient did have an attempted colonoscopy in July 2022 (Georges Ann M.D.) and findings showed moderate bowel preparation with significant spasticity/tortuosity and recommended repeat colonoscopy in 2 to 3 years secondary to the bowel preparation and tortuosity. The patient will be anesthetized/sedated using MAC sedation. The patient has been seen and examined. Cardiac and lung assessment prior to the examination is stable. Proceed with planned screening colonoscopy.
--- NOTE | 2024-12-21 12:30 | EXP.ANES.CKL ---
[facility] Disclaimer: The information contained in this section may have been updated after the patient was seen, as this information can be updated by other users. Medical History (Updated 12/21/24 @ 12:23 by Desmond Leos II, MD) Pancreatitis Conjunctivitis Hypothyroid Surgical History History of hysterectomy History of total vaginal hysterectomy (TVH) Family History Other Family history of cancer Family history of hypertension Social History Smoking Status: Never smoker alcohol intake: current substance use type: denies use current occupational status: employed Travel in the last 8 weeks?: None household members: family housing: house marital status: education level: college caffeine: Yes special tammy needs: No agree to transfusion: No do you feel safe at home: Yes victim of physical abuse: No victim of emotional abuse: No victim of sexual abuse: No would you like helpful sources: No Have you lived/traveled outside US in past 30 days?: No Contact w/someone who lives/traveled outside [place] past 30 days?: No Exposure to someone with infectious disease in past 14 days?: No Do you have a fever (greater than 100.4 F or 38 C)?: No Have you tested positive for COVID-19?: No Exposed to someone with COVID-19 in past 14 days?: No Do you have a sore throat?: No Do you have a cough?: No Do you have any weakness?: No Do you have any diarrhea?: No Are you experiencing any unusual bleeding?: No Do you have any muscle aches/pain?: No Do you have any abdominal pain?: No Are you experiencing loss of taste or smell?: No [facility] Anesthesia Checklist Patient Identification Patient Identification: Verbal (Name & ) Structural Data Admitted From: Home Planned Operative Procedure/s: colonoscopy Consent for Planned Operative Procedure(s) Verified: Yes NPO Status Verified Time NPO: 00:00 Additional verifications Anesthesia Reactions: No Hx Blood Transfusions: No Blood Transfusion Reaction: No Airway Assessment Mallampati Score:: Class II C-Spine Mobility Assessed: Yes TMJ Mobility Assessed: Yes Dentition: Good Dentition Neurological Assessment Level of Consciousness: Awake, Alert and Appropriate Anesthesia Plan Anesthesia Risk discussed: Yes Anesthesia Plan: Verified ASA Class: II Anesthesia Type: MAC
--- NOTE | 2024-12-21 12:31 | P.PCN_ITS ---
[facility] Procedure Note Date: 12/21/24 Time: 12:48 Procedure Note:: Colonoscopy Procedure Report: Colonoscopy with cold snare polypectomy Endoscopist: Desmond Leos II, MD Referring physician: Emmett Ventura M.D. Date of Procedure: December 21, 2024 Equipment: Olympus 190 variable stiffness pediatric colonoscope Sedation: MAC sedation Indication: Mrs. Hernandez is a 54-year-old female who is here for screening colonoscopy. The patient did have an attempted colonoscopy in July 2022 but description was significant spasticity with moderate bowel preparation and Dr. Georges Ann M.D. recommended repeat colonoscopy in 2 to 3 years secondary to the bowel preparation and spasticity. The patient does have some chronic constipation which is unchanged. She reports no rectal bleeding, abdominal pain, change in bowel habits, weight loss or family history of colon cancer. The patient has had some longstanding dumping syndrome that will occur every 3 to 6 months where she will have diarrhea. Procedure: Prior to the procedure, a history and physical exam was performed, and patient's medications and allergies were reviewed. The risks, benefits and alternatives of the sedation and procedure were discussed with the patient. All questions were answered and informed consent was obtained. The patient was brought to the procedure room. Patient identification and proposed procedure were verified by the physician and the nurse. The patient was placed in a left lateral decubitus position and the scope was passed under direct vision. Throughout the procedure, the patient's blood pressure, pulse, and oxygen saturations were monitored continuously. The colonoscopy was accomplished without difficulty. The patient tolerated the procedure well. Findings: On digital rectal examination there was normal rectal tone. There were no external hemorrhoids. The colonoscope was introduced through the anal canal to the rectum and advanced to the cecum. The ileocecal valve and appendiceal orifice were identified. The scope was advanced a short distance into the ileum which appeared grossly normal. The scope was then withdrawn into the colon. There was a diminutive 3 to 4 mm sigmoid polyp that was removed via cold snare polypectomy. The remaining cecum, ascending, transverse, descending, sigmoid and rectum were grossly normal. There were no other mucosal abnormalities identified. Upon retroflexion within the rectum there were grade 2-3 internal hemorrhoids. The preparation was excellent throughout with Morse Preparation Score of 9. The cecal time was 12 minutes. Impression: 1. Diminutive 3 to 4 mm sigmoid polyp 2. Grade 2-3 internal hemorrhoids Plan: I will follow-up the polyp histology and recommend repeat surveillance colonoscopy again in 7 to 10 years based upon the pathology. I would encourage a fiber bowel regimen (combined MiraLAX plus Metamucil) on a long-term daily maintenance basis.
[2024-12-21 12:50] VITALS: BP 99/55; PULSE 79; RESP 16; TEMP 36.2; O2SAT 96
[2024-12-21 13:00] VITALS: BP 97/50; PULSE 77; RESP 16; O2SAT 97
[2024-12-21 13:10] VITALS: BP 106/62; PULSE 76; RESP 16; O2SAT 96
[2024-12-21 13:20] VITALS: BP 93/57; PULSE 68; RESP 16; O2SAT 97
== END 2024-12-21 13:20 | disposition home or self-care (01) ==
PROVIDERS: PCP Internal Medicine Adolescent Medicine; Visit Provider Internal Medicine Gastroenterology
PROC: 0DJD8ZZ Inspection of Lower Intestinal Tract, Via Natural or Artificial Opening Endoscopic (ICD-10-PCS; CPT 45378; principal; 2024-12-21 12:00)
DX: Z12.11 Encounter for screening for malignant neoplasm of colon (principal); K63.5 Polyp of colon; K64.1 Second degree hemorrhoids; K64.2 Third degree hemorrhoids; E03.9 Hypothyroidism, unspecified; Z79.890 Hormone replacement therapy
CPT/HCPCS: 45385; J7120